=== PATIENT | male | born 1950 | race Caucasian/White ===

== ENCOUNTER 2016-08-12 03:25 | Observation (INO) | payer OTHER ==
[~2016-08-12] VITALS: Ht 182.9 cm; Wt 84.2 kg
[2016-08-12] VITALS (7 sets, daily range): BP systolic 125–171; BP diastolic 86–102; PULSE 61–78; TEMP 36.4–36.7; O2SAT 96–98; Ht 182.9 cm; Wt 84.2 kg
[2016-08-12 03:54] LABS: BASO % 0.3 %; BASO ABS # 0.02 K/uL (0-0.2); COMPLETE YES; EOS % 1.7 %; LYMPH % 41.9 %; MEAN CELL VOLUME 87.8 fL (80-100); MEAN CORPUSCULAR HEMOGLOBIN 31.7 pg (25-34); MEAN CORPUSCULAR HGB CONC 36.1 g/dl (32-36); MEAN PLATELET VOLUME 10.9 fL (7.4-10.4); MONO % 8.1 %; PLATELET COUNT 209 K/uL (130-400); RED BLOOD COUNT 5.01 M/uL (4.7-6.1); WHITE BLOOD COUNT 6.44 K/uL (4.8-10.8)
[2016-08-12 04:26] LABS: ALT/SGPT 24 U/L (12-78); AST/SGOT 16 U/L (15-37); BLOOD UREA NITROGEN 20 mg/dl (7-18); BUN/CREATININE RATIO 23.8 (10-20); CALCIUM 9.2 mg/dl (8.5-10.1); CARBON DIOXIDE 30 mmol/L (21-32); CHLORIDE 104 mmol/L (98-107); CREATININE 0.85 mg/dl (0.60-1.40); GLUCOSE 99 mg/dl (70-99); MAGNESIUM 2.1 mg/dl (1.8-2.4); POTASSIUM 3.7 mmol/L (3.5-5.1); SODIUM 143 mmol/L (136-145)
[2016-08-12 04:32] LABS: ALB/GLOB RATIO 1.2 (0.9-2); ALKALINE PHOSPHATASE 62 U/L (45-117); CKMB/CK RATIO 0.7 (0-3.0)
[2016-08-12 04:37] LABS: PARTIAL THROMBOPLASTIN RATIO 1.1; PROTHROMBIN TIME (PATIENT) 10.7 SECONDS (9.0-12.0)
--- NOTE | 2016-08-12 05:37 | EMERGENCY ROOM VISIT NOTE ---
History First contact with patient: 03:38 Chief Complaint: CHEST PAIN Stated Complaint: CHEST PAIN Nursing Triage Summary: Pt woke up with substernal chest pain around 0145. Pt reports pain 10/10 with nausea and SOB. EMS administered 2 nitro and 4 baby aspirin. Pt reports pain is now a dull ache around 3/10. Pain does not radiate History of Present Illness The patient is a 65 year old male who presents to the Emergency Department via EMS for evaluation of his substernal chest pain. The patient reports that he was awoken around 2 AM with this pain. Initially, he felt that it was gas- related, but reports that the pain was too intense. He is never experience pain is intense in the past. He reports he had some mild radiation into his back. He had his contacted 911 as he was very concerned. On arrival, the patient was provided intranasal nitroglycerin 2 and 4 baby aspirin. He reports complete relief of symptoms at this point range his pain is 0/10. He reports that his pain was a 10/10 when he was woken. He reports no history of coronary artery disease or hypertension. He reports a remote history of hyperlipidemia which has been controlled by diet. He denies any family history of heart disease. The patient is currently visiting while sitting locally. His doctor is not in this state. Patient currently denies any headaches, dizziness, lightheadedness, palpitations, short of breath, hemoptysis, fevers, chills, nausea, vomiting, or abdominal pain. Review of Systems A complete 10-point Review of Systems was discussed with the patient, with pertinent positives and negatives listed in the History of Present Illness. All remaining Review of Systems questions can be considered negative unless otherwise specified. Social History Smoking Status: Never Smoker Smokeless Tobacco Use: No Drug Use: none Marital Status: Housing Status: lives with family Current/Historical Medications No Active Prescriptions or Reported Meds Allergies Coded Allergies: Penicillins (Verified Allergy, Unknown, HIVES, 08/12/16) Physical Exam Vital Signs Date Time Temp Pulse Resp B/P Pulse Ox O2 Delivery O2 Flow Rate FiO2 08/12/16 04:34 62 18 120/86 99 Room Air 08/12/16 03:47 Room Air 08/12/16 03:38 36.6 65 13 152/95 99 Room Air 08/12/16 03:38 Room Air 08/12/16 03:33 67 Pain Rating (0-10): 0 Physical Exam VITAL SIGNS - Vital signs and nursing notes were reviewed. GENERAL - 65-year-old male appearing his stated age who is in no acute distress. Communicates well with provider and answers questions appropriately. HEAD - NC/AT. EYES - PERRL with EOMI bilaterally. Sclera anicteric. Palpebral conjunctiva pink and moist with no injection noted. EARS - No deformities of external structures noted on gross examination bilaterally. No pain elicited with palpation of the tragus bilaterally. External auditory canals without discharge or otorrhea. Tympanic membranes pearly kuhn without retraction or bulging. NOSE - Midline and without cyanosis. No epistaxis or purulent drainage noted. Septum midline without deviation or septal hematoma noted. MOUTH/OROPHARYNX - Without perioral cyanosis. Buccal mucosa pink and moist and without leukoplakia. Tongue midline with equal elevation of palate bilaterally. No tonsillar hypertrophy, erythema, or exudates noted. Good dentition noted. NECK - Neck with FROM. Supple to palpation without JVD. LUNGS - Chest wall symmetric without accessory muscle use, intercostals retractions, or central cyanosis. Normal vesicular breath sounds CTA B/L. No wheezes, rales, or rhonchi appreciated. CARDIAC - RRR with S1/S2. No murmur, rubs, or gallops appreciated. No reproducible tenderness to palpation appreciated over the anterior chest wall. ABDOMEN - Abdominal contour flat and without pulsations or visible masses. BS normoactive all four quadrants. No tenderness, palpable masses, hepatosplenomegaly, or ascites noted. EXTREMITIES - No clubbing or peripheral cyanosis. No pretibial edema present. PSYCH - A&Ox3 and cooperates fully with examiner. Pt is very pleasant and interacts well with examiner. Medical Decision & Procedures ER Provider Diagnostic Interpretation: X-ray the chest was obtained and reviewed by myself and my attending physician. There is slight rotation noted. No acute cardiopulmonary processes appreciated per our interpretation. Radiologist's impression unavailable at the time of dictation. Laboratory Results 08/12/16 03:14 Red Blood Count 5.01, Mean Corpuscular Volume 87.8, Mean Corpuscular Hemoglobin 31.7, Mean Corpuscular Hemoglobin Concent 36.1, Mean Platelet Volume 10.9, Neutrophils (%) (Auto) 48.0, Lymphocytes (%) (Auto) 41.9, Monocytes (%) (Auto) 8.1, Eosinophils (%) (Auto) 1.7, Basophils (%) (Auto) 0.3, Neutrophils # (Auto) 3.09, Lymphocytes # (Auto) 2.70, Monocytes # (Auto) 0.52, Eosinophils # (Auto) 0.11, Basophils # (Auto) 0.02 08/12/16 03:14 Test 08/12/16 03:14 08/12/16 04:19 White Blood Count 6.44 K/uL (4.8-10.8) Red Blood Count 5.01 M/uL (4.7-6.1) Hemoglobin 15.9 g/dL (14.0-18.0) Hematocrit 44.0 % (42-52) Mean Corpuscular Volume 87.8 fL (80-100) Mean Corpuscular Hemoglobin 31.7 pg (25-34) Mean Corpuscular Hemoglobin Concent 36.1 g/dl (32-36) Platelet Count 209 K/uL (130-400) Mean Platelet Volume 10.9 fL (7.4-10.4) Neutrophils (%) (Auto) 48.0 % Lymphocytes (%) (Auto) 41.9 % Monocytes (%) (Auto) 8.1 % Eosinophils (%) (Auto) 1.7 % Basophils (%) (Auto) 0.3 % Neutrophils # (Auto) 3.09 K/uL (1.4-6.5) Lymphocytes # (Auto) 2.70 K/uL (1.2-3.4) Monocytes # (Auto) 0.52 K/uL (0.11-0.59) Eosinophils # (Auto) 0.11 K/uL (0-0.5) Basophils # (Auto) 0.02 K/uL (0-0.2) RDW Standard Deviation 40.4 fL (36.4-46.3) RDW Coefficient of Variation 12.6 % (11.5-14.5) Immature Granulocyte % (Auto) 0.0 % Immature Granulocyte # (Auto) 0.00 K/uL (0.00-0.02) Anion Gap 9.0 mmol/L (3-11) Est Creatinine Clear Calc Drug Dose 96.4 ml/min Estimated GFR () 106.7 Estimated GFR (Non- 92.1 BUN/Creatinine Ratio 23.8 (10-20) Calcium Level 9.2 mg/dl (8.5-10.1) Magnesium Level 2.1 mg/dl (1.8-2.4) Total Bilirubin 0.3 mg/dl (0.2-1) Aspartate Amino Transf (AST/SGOT) 16 U/L (15-37) Alanine Aminotransferase (ALT/SGPT) 24 U/L (12-78) Alkaline Phosphatase 62 U/L (45-117) Total Creatine Kinase 176 U/L (39-308) Creatine Kinase MB 1.3 ng/ml (0.5-3.6) Creatine Kinase MB Ratio 0.7 (0-3.0) Troponin I < 0.015 ng/ml (0-0.045) Total Protein 7.0 gm/dl (6.4-8.2) Albumin 3.8 gm/dl (3.4-5.0) Globulin 3.2 gm/dl (2.5-4.0) Albumin/Globulin Ratio 1.2 (0.9-2) Lipase 190 U/L (73-393) Prothrombin Time 10.7 SECONDS (9.0-12.0) Prothromb Time International Ratio 1.0 (0.9-1.1) Activated Partial Thromboplast Time 27.8 SECONDS (21.0-31.0) Partial Thromboplastin Ratio 1.1 Procedure Patient was placed on the vehicle monitor technician and monitored throughout the entire extent of their stay. In addition, the patient's pulse oximetry was monitored throughout the entire stay. Any abnormalities or aberrancies were addressed appropriately. ECG Indication: chest pain Rate (beats per minute): 61 Rhythm: normal sinus Findings: no acute ischemic change, no ectopy Comparison ECG Date: no prior available ED Course Patient was seen and evaluated by myself. Prior to arrival, the patient had received 2 doses of nitroglycerin and 324 mg aspirin. Labs were drawn, saline lock in place. EKG and chest x-rays were obtained. Laboratory results demonstrate no acute leukocytosis, worrisome anemia, or bandemia. The patient has no significant electrolyte abnormalities. Cardiac enzymes are negative. Troponin is negative. EKG and chest x-rays are unremarkable. Laboratory results and imaging studies were reviewed with the patient who acknowledges understanding. Patient will be admitted to the [facility] hospitalist program for cardiac rule out. Patient admitted in fair condition. Medical Decision Given the patient's presentation and stated complaints, I did elect to perform the above-mentioned workup. The patient presents today via EMS after experiencing central chest pain. His pain was relieved with nitroglycerin and aspirin alone. He has had no return of symptoms while in the emergency department. His EKG is initially unremarkable. There are no comparisons as the patient is traveling. He is not hypoxic. He is not tachypnea. He is not tachycardic. He appears has no significant history of cardiac issues, however he sounds as though he may be lackadaisical with his healthcare in general. Regardless, the patient warrants further evaluation as he has not been seen cardiac standpoint this point in his life. The patient was admitted in fair condition to the [facility] program. In the evaluation and treatment of this patient, the following differential diagnoses were considered: PA, ASC, Dysrhythmia, Angina, Mediastinitis, GERD, Esophagitis, PE, Pneumonia, Bronchitis, Costochondritis, Rib Fracture, Zoster. Impression Primary Impression: Substernal precordial chest pain Departure Information Dispostion Admitted as an inpatient Condition FAIR Prescriptions No Active Prescriptions or Reported Meds Referrals No Doctor, Assigned (PCP) Patient Instructions [facility]
[2016-08-12] MEDS ORDERED: MAGNESIUM HYDROXIDE SUSP 30 ML UDC PO PRN (06:30)
[2016-08-12] MEDS ORDERED: ZOLPIDEM TARTRATE 5 MG TAB PO PRN (06:30)
[2016-08-12] MEDS ORDERED: NITROGLYCERIN 0.4 MG SL PER TAB CHARGE SL PRN (06:30)
[2016-08-12] MEDS ORDERED: ALUMINUM/MAGNESIUM/SIMETH (MAALOX MAX) 30 ML UDC PO PRN (06:30)
[2016-08-12] MEDS ORDERED: ACETAMINOPHEN 325 MG TAB PO PRN (06:30)
[2016-08-12] MEDS ORDERED: MoRPHine SULFATE 2 MG/ML CARP IV PRN (06:30)
[2016-08-12] MEDS ORDERED: ONDANSETRON INJ 2 MG/ML 2 ML VIAL IV PRN (06:30)
[2016-08-12] MEDS ORDERED: POLYETHYLENE (MIRALAX) 17 GM PACK PO PRN (06:30)
--- NOTE | 2016-08-12 06:31 | History and Physical ---
History & Physical Date & Time of Service: Aug 12, 2016 at 06:21 Chief Complaint: Chest Pain Primary Care Physician: No Doctor, Assigned History of Present Illness Source: patient 65 y/o M who denies any PMH - developed acute central CP - mild SOB - denies N/V /, diaphoresis or radiation to his arms/jaw. He states he became light headed after the pain was present for 1 ht. He called EMS and was provided with 2 doses NTG and transported to the ER. He did not immediately respond to the NTG however his pain resolved ~30 min later. Past Medical/Surgical History Denies any significant Hx Family History Both parents - no history of CAD - father from pancreatic CA Social History Retired massage therapist - nonsmoker - visiting from [place] Smoking Status: Never Smoker Smokeless Tobacco Use: No Drug Use: none Marital Status: Allergies Coded Allergies: Penicillins (Verified Allergy, Unknown, HIVES, 08/12/16) Home Medications No Active Prescriptions or Reported Meds Review of Systems Constitutional: No fever Eyes: No eye pain, No worsening of vision ENT: No hearing loss, No nasal symptoms, No unusual epistaxis Respiratory: No cough, No sputum, No wheezing Cardiovascular: + chest pain, No PND, No edema, No orthopnea Abdomen: No nausea, No pain, No vomiting Musculoskeletal: No joint pain Genitourinary - Male: No dysuria, No hematuria Neurologic: No memory loss Psychiatric: No depression symptoms Endocrine: No fatigue Hematologic / Lymphatic: No abnormal bleeding/bruising Integumentary: No rash Allergic / Immunologic: No environmental allergies Physical Exam Vital Signs Date Time Temp Pulse Resp B/P Pulse Ox O2 Delivery O2 Flow Rate FiO2 08/12/16 04:34 62 18 120/86 99 Room Air 08/12/16 03:47 Room Air 08/12/16 03:38 36.6 65 13 152/95 99 Room Air 08/12/16 03:38 Room Air 08/12/16 03:33 67 General Appearance: WD/WN, no apparent distress Head: normocephalic, atraumatic Eyes: normal inspection, PERRL, EOMI ENT: normal ENT inspection, hearing grossly normal, TMs normal, pharynx normal Neck: supple, no JVD Respiratory/Chest: chest non-tender, lungs clear, normal breath sounds, no respiratory distress, no accessory muscle use Cardiovascular: regular rate, rhythm, no edema, no gallop, no JVD, no murmur, normal peripheral pulses Abdomen/GI: normal bowel sounds, non tender, soft Back: normal inspection Extremities/Musculoskelatal: normal inspection, no calf tenderness, normal capillary refill, no pedal edema, normal range of motion Neurologic/Psych: inventory and pricing associate II-XII nml as tested, no motor/sensory deficits, alert, normal mood/affect, normal reflexes, oriented x 3 Skin: normal color, warm/dry, no rash Diagnostics Laboratory Results Results Past 24 Hours Test 08/12/16 03:14 08/12/16 04:19 Range/Units White Blood Count 6.44 4.8-10.8 K/uL Red Blood Count 5.01 4.7-6.1 M/uL Hemoglobin 15.9 14.0-18.0 g/dL Hematocrit 44.0 42-52 % Mean Corpuscular Volume 87.8 80-100 fL Mean Corpuscular Hemoglobin 31.7 25-34 pg Mean Corpuscular Hemoglobin Concent 36.1 32-36 g/dl Platelet Count 209 130-400 K/uL Mean Platelet Volume 10.9 7.4-10.4 fL Neutrophils (%) (Auto) 48.0 % Lymphocytes (%) (Auto) 41.9 % Monocytes (%) (Auto) 8.1 % Eosinophils (%) (Auto) 1.7 % Basophils (%) (Auto) 0.3 % Neutrophils # (Auto) 3.09 1.4-6.5 K/uL Lymphocytes # (Auto) 2.70 1.2-3.4 K/uL Monocytes # (Auto) 0.52 0.11-0.59 K/uL Eosinophils # (Auto) 0.11 0-0.5 K/uL Basophils # (Auto) 0.02 0-0.2 K/uL RDW Standard Deviation 40.4 36.4-46.3 fL RDW Coefficient of Variation 12.6 11.5-14.5 % Immature Granulocyte % (Auto) 0.0 % Immature Granulocyte # (Auto) 0.00 0.00-0.02 K/uL Sodium Level 143 136-145 mmol/L Potassium Level 3.7 3.5-5.1 mmol/L Chloride Level 104 98-107 mmol/L Carbon Dioxide Level 30 21-32 mmol/L Anion Gap 9.0 3-11 mmol/L Blood Urea Nitrogen 20 7-18 mg/dl Creatinine 0.85 0.60-1.40 mg/dl Est Creatinine Clear Calc Drug Dose 96.4 ml/min Estimated GFR () 106.7 Estimated GFR (Non- 92.1 BUN/Creatinine Ratio 23.8 10-20 Random Glucose 99 70-99 mg/dl Calcium Level 9.2 8.5-10.1 mg/dl Magnesium Level 2.1 1.8-2.4 mg/dl Total Bilirubin 0.3 0.2-1 mg/dl Aspartate Amino Transf (AST/SGOT) 16 15-37 U/L Alanine Aminotransferase (ALT/SGPT) 24 12-78 U/L Alkaline Phosphatase 62 45-117 U/L Total Creatine Kinase 176 39-308 U/L Creatine Kinase MB 1.3 0.5-3.6 ng/ml Creatine Kinase MB Ratio 0.7 0-3.0 Troponin I < 0.015 0-0.045 ng/ml Total Protein 7.0 6.4-8.2 gm/dl Albumin 3.8 3.4-5.0 gm/dl Globulin 3.2 2.5-4.0 gm/dl Albumin/Globulin Ratio 1.2 0.9-2 Lipase 190 73-393 U/L Prothrombin Time 10.7 9.0-12.0 SECONDS Prothromb Time International Ratio 1.0 0.9-1.1 Activated Partial Thromboplast Time 27.8 21.0-31.0 SECONDS Partial Thromboplastin Ratio 1.1 EKG NSR Impression Assessment and Plan y/o M who denies any PMH - developed acute central CP - mild SOB - denies N/V/, diaphoresis or radiation to his arms/jaw. He states he became light headed after the pain was present for 1 ht. He called EMS and was provided with 2 doses NTG and transported to the ER. He did not immediately respond to the NTG however his pain resolved ~30 min later. Pt admitted to telemetry for serial troponins - provided ASA - would schedule for outpt stress if pain does not recur and enzymes negative - he is active and could tolerate a stress echo. Total time for this admit including review of labs, meds, EKG - discussion with pt and ER attending 26 min Lovenox prophylaxis - full code Level of Care Telemetry Resuscitation Status FULL RESUSCITATION VTE Prophylaxis VTE Risk Assessment Done? Y/N: Yes Risk Level: Low Given or contraindicated: Enoxaparin (Lovenox)SQ
--- NOTE | 2016-08-12 06:34 | DIAGNOSTIC IMAGING REPORT ---
CHEST ONE VIEW PORTABLE CLINICAL HISTORY: Atypical chest pain nausea and shortness of breath COMPARISON STUDY: No previous studies for comparison. FINDINGS: The heart is at the upper limits of normal in size. There is mild interstitial prominence but no evidence of overt failure. There is no focal pulmonary consolidation. There are no pleural effusions.[ IMPRESSION: 1. No focal pulmonary consolidation. 2. Mild interstitial prominence but no evidence of overt failure Electronically signed by: Terrance Sotomayor M.D. 08/12/2016 6:31 AM Dictated Date/Time: 08/12/2016 6:31 AM
[2016-08-12] MEDS ORDERED: IV FLUIDS COMPLETED PRN (07:15)
[2016-08-12] MEDS ORDERED: ENOXAPARIN 40 MG/0.4 ML SYR SC SCH (09:00)
--- NOTE | 2016-08-12 17:09 | Discharge Summary ---
Discharge Summary Admission Date: Aug 12, 2016 at 06:21 Discharge Date: Aug 13, 2016 Discharge Disposition: Home Principal Diagnosis: Precordial Chest pain (Lolita Roper MD) Medication Reconciliation New Medications: Aspirin (Aspirin EC Low Dose) 81 Mg Ectab 81 MG PO DAILY, #30 TAB Pantoprazole Sodium (Protonix) 40 Mg Tab 40 MG PO QAM, #30 TAB Discharge Exam Review of Systems: Constitutional: No chills, No fever Eyes: No worsening of vision ENT: No hearing loss Respiratory: No cough, No sputum Cardiovascular: No chest pain Abdomen: No nausea, No pain, No vomiting Musculoskeletal: No joint pain Genitourinary - Male: No dysuria, No hematuria, No urinary frequency Neurologic: No paralysis Psychiatric: No depression symptoms Endocrine: No fatigue Hematologic / Lymphatic: No abnormal bleeding/bruising Physical Exam: General Appearance: WD/WN, no apparent distress Eyes: normal inspection ENT: normal ENT inspection, hearing grossly normal Neck: supple, no adenopathy Respiratory/Chest: chest non-tender, lungs clear Cardiovascular: regular rate, rhythm, no edema Abdomen / GI: normal bowel sounds, non tender Extremities: normal inspection Neurologic/Psychiatric: alert, normal mood/affect, oriented x 3 Skin: normal color (Lolita Roper MD) Hospital Course 65 y/o M who denies any PMH - developed acute central CP - mild SOB - denies N/V /, diaphoresis or radiation to his arms/jaw. He states he became light headed after the pain was present for 1 ht. He called EMS and was provided with 2 doses NTG and transported to the ER. He did not immediately respond to the NTG however his pain resolved ~30 min later. troponin trended x3 negative Stress Echo: Normal exercise stress echocardiogram. No echocardiographic or ECG evidence of myocardial ischemia having achieved heart rate adequate for diagnostic purposes. * Ejection Fraction = 55-60%. was found to have different BP readings on both the arms, recommended to check BP and maintain journal and follow up with PCP in 1 week and use a baby aspirin. Follow up with GI for hiatal hernia and use Protonix, highly suspect symptoms related to GI Total Time Spent: Greater than 30 minutes This includes examination of the patient, discharge planning, medication reconciliation, and communication with other providers. (Lolita Roper MD) Discharge Instructions Please refer to the electronic Patient Visit Report (Discharge Instructions) for additional information. (Lolita Roper MD) Reviewed: Pt Seen/Exam by DENNIS Dobson Notes, Labs, RAD, EKG (Alisha Santizo MD) History Resident Physician Supervision Note: I was present with Dr. Roper during the history and exam. I discussed the case with the resident and agree with the findings and plan as documented in the note. Any exceptions or clarifications are listed here: Pt remained chest pain free throughout hospital stay. Normal stress ECHO. Vitals reviewed NAD, AAOx3 RRR no mgr nl S1S2 CTAB no wcr Abd soft NT ND +BS Ext no calf tenderness, no edema A/P: 65 yo male with chest pain and borderline elevated blood pressure likely secondary to anxiety, CP likely GI related. Recommend f/u with PCP (Dr. Roper) in 2-3 days for f/u and can get referral to GI and recheck BPs Stress ECHO normal and serial troponin negative, ECG normal, so unlikely to be cardiac in nature. Stable for dc to home Documented By: Alisha Santizo (Alisha Santizo MD)
--- NOTE | 2016-08-12 18:11 | EXERCISE STRESS ECHO ---
*NOTICE TO RECEIVING CONSTITUTION PARTY AGENCY This information is strictly Confidential and protected under [place] law. [place] law prohibits you from making any further disclosure of this information unless further disclosure is expressly permitted by the written consent of the person to whom it pertains or is authorized by law. A general authorization for the release of medical or other information is not sufficient for this purpose. Hospital accepts no responsibility if the information is made available to any other person, INCLUDING THE PATIENT. Interpretation Summary * The exercise echocardiographic examination is normal without resting left ventricular wall motion abnormalities or inducible ischemia. * This was a normal stress echocardiogram. * Baseline ECG was essentially normal. No symptoms were noted. * The stress echocardiogram is negative for inducible ischemia. * The stress ECG response was normal * STRESS STUDY: Normal exercise stress echocardiogram. No echocardiographic or ECG evidence of myocardial ischemia having achieved heart rate adequate for diagnostic purposes. * Mild aortic root dilatation. Trace aortic,mitral,and tricuspid regurgitation. Procedure Details * ECHOEX, CPT #[id number] * ECHO COLOR FLOW, CPT #[id number] * ECHO DOPPLER, CPT #[id number] Left Ventricle * The left ventricle is normal in size. * There is normal left ventricular wall thickness. * Ejection Fraction = 55-60%. * Resting wall motion: Normal. Stress wall motion: Appropriate increase in Left ventricular systolic function and decrease in cavity size. No stress induced segmental wall motion abnormalities. * The left ventricular ejection fraction increases normally with stress. The left ventricular end-systolic cavity size reduces post-stress (normal response). The left ventricular wall motion with stress is normal. Right Ventricle * The right ventricle is normal in size and function. Atria * The left atrial size is normal. * Right atrial size is normal. Mitral Valve * The mitral valve is normal. * There is trace mitral regurgitation. Tricuspid Valve * The tricuspid valve is normal. * There is trace tricuspid regurgitation. Aortic Valve * The aortic valve is trileaflet. * The aortic valve opens well. * Trace aortic regurgitation. Pulmonic Valve * The pulmonic valve is not well visualized. * There is no significant pulmonary regurgitation. Great Vessels * Mild aortic root dilatation. Pericardium * There is no pericardial effusion. Stress Parameters * Normal baseline electrocardiogram. * The stress ECG response was normal * The stress portion of this study was personally supervised by the undersigned interpreting physician. * Rest heart rate was '66' BPM. * Rest blood pressure was '142/87' * Maximum heart rate achieved was 141 bpm. * Maximum heart rate was 90 % of maximum age-predicted heart rate. * Maximum blood pressure was '168/80' * Total exercise time was '07:11' * Maximum exercise MET level achieved was '8.80' METS * Maximum treadmill speed was '3.40' miles per hour. * Maximum treadmill elevation was '14.00'% grade. MMode 2D Measurements and Calculations IVSd 1.1 cm IVSs 1.6 cm LVIDd 5.4 cm LVIDs 4.0 cm LVPWd 1.0 cm LVPWs 1.2 cm IVS/LVPW 1.1 FS 26.8 % EDV(Teich) 141.1 ml ESV(Teich) 68.0 ml EF(Teich) 51.8 % EDV(cubed) 157.2 ml ESV(cubed) 61.7 ml EF(cubed) 60.7 % % IVS thick 42.4 % % LVPW thick 16.3 % LV mass(C)d 228.1 grams LV mass(C)dI 110.7 grams/m\S\2 LV mass(C)s 204.8 grams LV mass(C)sI 99.4 grams/m\S\2 SV(Teich) 73.1 ml SI(Teich) 35.5 ml/m\S\2 SV(cubed) 95.5 ml SI(cubed) 46.3 ml/m\S\2 Ao root diam 4.3 cm Ao root area 14.8 cm\S\2 ACS 2.4 cm LA dimension 2.4 cm LA/Ao 0.55 LVOT diam 2.0 cm LVOT area 3.1 cm\S\2 Doppler Measurements and Calculations MV E max gisselle 62.1 cm/sec MV A max gisselle 53.4 cm/sec MV E/A 1.2 MV dec time 0.25 sec Ao V2 max 110.5 cm/sec Ao max PG 4.9 mmHg Ao max PG (full) 2.4 mmHg SHERIF(V,A) 2.2 cm\S\2 SHERIF(V,D) 2.2 cm\S\2 LV V1 max PG 2.4 mmHg LV V1 max 78.1 cm/sec PA V2 max 118.1 cm/sec PA max PG 5.6 mmHg
[2016-08-12] MEDS ORDERED: PANT40TA PO (18:30)
[2016-08-12] MEDS ORDERED: ASPEC81 PO (18:30)
--- NOTE | 2016-08-12 18:35 | Discharge Instructions ---
Discharge Instructions Admission Reason for Admission: Substernal Precordial Chest Pain Discharge Discharge Diagnosis / Problem: Chest pain-noncardiac Discharge Goals Goal(s): Improve disease control, Therapeutic intervention Activity Recommendations Activity Limitations: resume your previous activity . Instructions / Follow-Up Instructions / Follow-Up You were admitted with chest pain and a heart attack was ruled out. You had a normal stress echocardiogram. Your blood pressure was intermittently elevated but was probably due to anxiety/stress. This chest pain may have been due to a GI-related issue. It is highly recommended that you follow up with a GI specialist. Dr. Roper can refer you to one when you see her in follow up. Please follow up with Dr. Roper within 1 week. You should continue to take a baby aspirin daily to prevent heart attack. It is also recommended that you start on Protonix once daily for indigestion and your hiatal hernia. You should check your blood pressures with a home machine at rest, on each arm, 1-2x/daily; keep a log book of the readings. Current Hospital Diet Patient's current hospital diet: AHA Diet (Heart Healthy) Discharge Diet Recommended Diet: Regular Diet Procedures Procedures Performed: Stress ECHO Pending Studies Studies pending at discharge: no Medical Emergencies . Who to Call and When: Medical Emergencies: If at any time you feel your situation is an emergency, please call 911 immediately. . Non-Emergent Contact Non-Emergency issues call your: Primary Care Provider Call Non-Emergent contact if: your pain is not controlled, your pain is worsening, you have any medication questions . . "Provider Documentation" section prepared by Alisha Santizo. VTE Core Measure Inpt VTE Proph given/why not?: Enoxaparin (Lovenox)SQ
== END 2016-08-12 18:45 | disposition home or self-care (01) ==
LOC: ENRESERVDT → ENRESERVTM → EDBD 03:25 → C.EDB 03:28 → C.MSICU 06:21
PROVIDERS: ADMIT Internal Medicine; ATTEND Internal Medicine
DX: R07.89 Other chest pain (principal); E78.5 Hyperlipidemia, unspecified; R42 Dizziness and giddiness; Z80.0 Family history of malignant neoplasm of digestive organs

== ENCOUNTER → 2016-10-01 | Outpatient (CLI) | payer OTHER ==
[~2016-10-01] MED LIST: ASPEC81 PO
[2016-10-01 12:25] LABS: ALT/SGPT 21 U/L (12-78); BLOOD UREA NITROGEN 12 mg/dl (7-18); BUN/CREATININE RATIO 15.9 (10-20); CALCIUM 8.6 mg/dl (8.5-10.1); CARBON DIOXIDE 25 mmol/L (21-32); CHLORIDE 106 mmol/L (98-107); CHOLESTEROL 204 mg/dl (0-200); CREATININE 0.76 mg/dl (0.60-1.40); GLUCOSE 86 mg/dl (70-99); POTASSIUM 4.2 mmol/L (3.5-5.1); SODIUM 140 mmol/L (136-145)
[2016-10-01 12:30] LABS: ALKALINE PHOSPHATASE 66 U/L (45-117); AST/SGOT 20 U/L (15-37); CHOLESTEROL/HDL RATIO 4.4; HDL CHOLESTEROL 46 mg/dl; LDL CHOLESTEROL CALCULATED 136 mg/dl; PROSTATE SPECIFIC ANTIGEN 0.544 ng/ml (0.000-4.000); TRIGLYCERIDES 109 mg/dl (0-150); VERY LOW DENSITY LIPOPROT CALC 22 mg/dl
== END | disposition home or self-care (01) ==
LOC: C.LAB 09:52
PROVIDERS: ATTEND Family Medicine
DX: N52.9 Male erectile dysfunction, unspecified (principal); R53.81 Other malaise; Z12.5 Encounter for screening for malignant neoplasm of prostate; Z13.220 Encounter for screening for lipoid disorders; Z20.5 Contact with and (suspected) exposure to viral hepatitis; Z13.1 Encounter for screening for diabetes mellitus